=== PATIENT | male | born 1970 | race Caucasian/White ===

== ENCOUNTER 2019-05-21 18:31 | Emergency (ER) | payer OTHER ==
[~2019-05-21] VITALS: Ht 167.6 cm; Wt 99.8 kg
[~2019-05-21 18:31] MED LIST: ANTIVERT25 MG PO; ASPIRIN EC81 M1 PO; FLEXERIL PO; GLUCOPHAGE500 MG PO; IBUPROFEN 800800 M1 PO; LISINOPRIL-HCT1 EACH PO; LISINOPRIL10 MG PO; LISINOPRIL5 MG PO; MECLIZINE HCL12.5 MG PO; METFORMIN HCL500 MG PO; NOHOMEMEDICATIONS; NORCO 5-325 TA1 EACH PO; ULTRAM50 MG PO; ZOFRAN ODT4 MG PO
[2019-05-21] MEDS ORDERED: NORVASC 2.5 MG2.5 M1 PO ×2 (18:40→21:02)
[2019-05-21 19:59] LABS: ABSOLUTE BASOPHILS 0.1 thou/uL (0.0-0.2); ABSOLUTE EOSINOPHILS 0.3 thou/uL (0.0-0.7); ABSOLUTE LYMPHOCYTES 2.7 thou/uL (0.8-5.3); ABSOLUTE MONOCYTES 0.4 thou/uL (0.0-1.2); ABSOLUTE NEUTROPHILS 3.4 thou/uL (1.6-8.1); BASOPHILS 1.1 %; EOSINOPHILS 4.5 %; HEMATOCRIT 40.4 % (42.0-52.0); HEMOGLOBIN 14.3 gm/dL (14.0-18.0); LYMPHOCYTES 39.8 %; MCH 29.7 pg (26.0-34.0); MCHC 35.5 g/dL (28.0-37.0); MCV 83.8 fL (80.0-100.0); MONOCYTES 5.3 %; MPV 8.8 fl. (7.2-11.1); NUCLEATED RBCS 0 /100WBC; PLATELET COUNT* 192 thou/uL (150-400); POLYS 49.3 %; RBC 4.82 mil/uL (4.50-6.00); RDW-CV 13.2 % (10.5-14.5); WBC 6.9 thou/uL (4.0-11.0)
[2019-05-21 20:12] LABS: APTT 25.2 Seconds (25.0-31.3); PROTIME 10.2 Seconds (9.20-11.50)
[2019-05-21 20:14] LABS: CALCIUM 8.1 mg/dL (8.5-10.1); POTASSIUM 3.9 mmol/L (3.5-5.1)
[2019-05-21 20:24] LABS: ALBUMIN 3.8 g/dL (3.4-5.0); TOTAL BILIRUBIN 0.3 mg/dL (<0.1-1.0); TOTAL PROTEIN 6.8 g/dL (6.4-8.2)
[2019-05-21] MEDS ORDERED: GLUCOPHAGE500 MG PO (21:02)
[2019-05-21] MEDS ORDERED: NEURONTIN300 MG PO (21:02)
[2019-05-21] MEDS ORDERED: LISINOPRIL-HCT1 EACH PO (21:02)
[2019-05-21 21:21] VITALS: BP 158/84
--- NOTE | 2019-05-22 11:14 | EKG ---
[place] [address] ELECTROCARDIOGRAM REPORT Name: DORI THOMAS JR Room: [facility]#: [id number] Admission: 05/21/19 Attend Phys: Discharge: 05/21/19 Date of : 66 Report #: [id number] THIS REPORT FOR: //name// [facility] ED Test Date: 2019-05-21 Test Time: 19:31:09 Pat Name: DORI WILLIAM Department: Room: Gender: M Science Intern: : 1970 Requested By: Jamarcus Garcia Order Number: [id number] MD: Roosevelt Nieto Measurements Intervals [place] Rate: 69 P: 13 NH: 139 QRS: 8 QRSD: 107 T: 7 QT: 383 QTc: 411 Interpretive Statements Sinus rhythm Consider anterior infarct Compared to ECG 05/11/2016 08:20:47 no change Electronically Signed On 05-22-2019 11:14:17 SPECTROSCOPIST by Roosevelt Nieto [email or web address] <ELECTRONICALLY SIGNED> By: Roosevelt Neito MD, [facility] 05/22/19 [id number] 193 Roosevelt Nieto MD, FACC /EPI
== END 2019-05-21 21:21 | disposition home or self-care (01) ==
LOC: M.ERS 18:31
PROVIDERS: Emergency Medicine Emergency Medical Services
DX: I10 Essential (primary) hypertension (principal); E11.65 Type 2 diabetes mellitus with hyperglycemia; E11.40 Type 2 diabetes mellitus with diabetic neuropathy, unspecified; R42 Dizziness and giddiness; F17.210 Nicotine dependence, cigarettes, uncomplicated